=== PATIENT | male | born 1985 | race Caucasian/White ===

== ENCOUNTER 2022-03-06 18:23 | Emergency (ER) | payer OTHER ==
[~2022-03-06] VITALS: Ht 188 cm; Wt 111.4 kg
[2022-03-06 18:34] VITALS: BP 108/65
== END 2022-03-06 21:41 | disposition home or self-care (01) ==
LOC: EMS 18:26
DX: M25.552 Pain in left hip (principal); Z98.890 Other specified postprocedural states
CPT/HCPCS: 99281; Z7502